=== PATIENT | male | born 1990 | race Caucasian/White ===

== ENCOUNTER 2016-10-27 00:48 | Emergency (ER) | payer OTHER ==
[~2016-10-27] VITALS: Ht 162.6 cm; Wt 68.0 kg
[2016-10-27] MEDS ORDERED: NKM (00:56)
[2016-10-27] MEDS ORDERED: Bacitracin Oint UD TOPIC ONE (01:30)
[2016-10-27] MEDS ORDERED: BACITRACIN1 EACH TOPIC (01:57)
[2016-10-27 03:08] VITALS: BP 125/71
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
--- NOTE | 2016-10-27 10:02 | Diagnostic Imaging Report ---
Indication: PAIN Technique: XRAY HAND MIN 3V RIGHT Comparison: None. Findings: The osseous structures are intact. There is no fracture or destruction. The visualized joints are normal. The soft tissues are unremarkable. Impression: Normal.
== END 2016-10-27 03:08 | disposition home or self-care (01) ==
LOC: EMR 01:10
DX: S60.511A Abrasion of right hand, initial encounter (principal); Y04.0XXA Assault by unarmed brawl or fight, initial encounter; Y92.9 Unspecified place or not applicable
CPT/HCPCS: 99283

== ENCOUNTER 2017-04-11 22:51 | Emergency (ER) | payer OTHER ==
[~2017-04-11] VITALS: Ht 162.6 cm; Wt 70.3 kg
[~2017-04-11 22:51] MED LIST: BACITRACIN1 EACH TOPIC; NKM
[2017-04-11 23:05] VITALS: BP 119/82
[2017-04-12] MEDS ORDERED: IBUPROFEN600 MG ORAL (00:03)
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
[2017-04-12 00:16] VITALS: BP 119/82
--- NOTE | 2017-04-12 08:23 | Diagnostic Imaging Report ---
Indication: Headache Technique: Contiguous 5 mm thick transaxial imaging of the head obtained in a Siem[employer] Sensation [address] scanner. Soft tissue and bone windows generated. Total Dose length Product (DLP): [address] Dose Index Volume (CTDIvol): 70.38, 0.15 mGy Comparison: none Findings: The size and configuration of the cortical sulci, basal cisterns, and ventricles are within normal limits for age. There is no mass effect, midline shift, or edema identified. There is no evidence of acute hemorrhage or abnormal intra-axial or extra-axial fluid collections. The bones and soft tissues are unremarkable. Impression: No mass effect, edema or acute bleed. The CT scanner at [facility] is accredited by the [employer] and the scans are performed using dose optimization techniques as appropriate to a performed exam including Automatic Exposure control.
== END 2017-04-12 00:16 | disposition home or self-care (01) ==
LOC: EMR 23:30
DX: R51 Headache (principal); S00.03XA Contusion of scalp, initial encounter; W19.XXXA Unspecified fall, initial encounter; Y92.89 Other specified places as the place of occurrence of the external cause
CPT/HCPCS: 70450; 99284